=== PATIENT | female | born 1970 | race Caucasian/White ===

== ENCOUNTER → 2020-04-09 10:30 | Outpatient (BNVA) | payer OTHER, SELFPAY | PROVIDERS: Family Provider Family Medicine; PCP Family Medicine; Visit Provider Registered Nurse | DX: F41.1 Generalized anxiety disorder (principal) | CPT/HCPCS: 80053; 80061 ==

== ENCOUNTER → 2020-12-15 11:28 | Outpatient (BNVA) | payer MEDICAID, SELFPAY | PROVIDERS: Family Provider Family Medicine; PCP Family Medicine; Visit Provider Registered Nurse | DX: F33.2 Major depressive disorder, recurrent severe without psychotic features (principal); Z03.89 Encounter for observation for other suspected diseases and conditions ruled out; Z79.899 Other long term (current) drug therapy | CPT/HCPCS: 36415; 80053; 80061; 82306; 82607; 83036; 84443 ==

== ENCOUNTER → 2021-11-07 13:05 | Outpatient (BNVA) | payer MEDICAID, SELFPAY ==
[2021-03-22 17:06] VITALS: BP 109/78; BMI 33.4
== END ==
PROVIDERS: Family Provider Family Medicine; PCP Family Medicine; Visit Provider Registered Nurse
DX: F33.2 Major depressive disorder, recurrent severe without psychotic features (principal); Z79.899 Other long term (current) drug therapy
CPT/HCPCS: 80053; 80061; 82306; 83036; 85025

== ENCOUNTER 2021-12-16 11:39 | Outpatient (CLI) | payer MEDICAID, SELFPAY ==
[2021-03-22 17:06] VITALS: BP 109/78; BMI 33.4
[2021-11-14 15:08] VITALS: BP 114/74; BMI 33.3
--- NOTE | 2021-12-16 11:47 | MM_ITS ---
WS: [id number] BILATERAL 3D TOMOSYNTHESIS DIGITAL SCREENING MAMMOGRAPHY WITH CAD CLINICAL INFORMATION: SCREENING HISTORY: Screening mammogram. Clear nipple discharge COMPARISON: September 06, 2017 TECHNIQUE: Bilateral CC and MLO views. FINDINGS: The breasts are composed of heterogeneous fibroglandular density tissue, which can limit the detectio n of small underlying mass lesions. No suspicious mass, asymmetry, calcifications, or architectural d istortion. No evidence of malignancy. MM/[id number] IMPRESSION: BI-RADS: 1-Negative FOLLOW UP: 1 Year Follow-up Recommend return to annual screening mammography.
== END 2021-12-16 11:40 | disposition home or self-care (01) ==
LOC: RADSHAW 11:40
PROVIDERS: PCP Family Medicine; Visit Provider Family Medicine
DX: Z12.31 Encounter for screening mammogram for malignant neoplasm of breast (principal)
CPT/HCPCS: 77063; 77067

== ENCOUNTER → 2023-02-08 13:47 | Outpatient (BNVA) | payer MEDICAID, SELFPAY ==
[2021-11-14 15:08] VITALS: BP 114/74; BMI 33.3
== END ==
PROVIDERS: PCP Family Medicine; Visit Provider Registered Nurse
DX: Z79.899 Other long term (current) drug therapy (principal)
CPT/HCPCS: 80053; 80061; 82306; 82607; 83036; 84443; 85025

== ENCOUNTER → 2024-09-15 15:59 | Outpatient (BNVA) | payer OTHER, SELFPAY ==
[2021-11-14 15:08] VITALS: BP 114/74; BMI 33.3
== END ==
PROVIDERS: PCP Family Medicine; Visit Provider Psychiatry & Neurology Psychiatry
DX: F33.2 Major depressive disorder, recurrent severe without psychotic features (principal); Z79.899 Other long term (current) drug therapy; F43.12 Post-traumatic stress disorder, chronic; F41.1 Generalized anxiety disorder; F44.9 Dissociative and conversion disorder, unspecified; F51.05 Insomnia due to other mental disorder; F99 Mental disorder, not otherwise specified
CPT/HCPCS: 80053; 80061; 83036; 84443; 85025

== ENCOUNTER → 2024-10-23 09:20 | Outpatient (BNVA) | payer MEDICAID, SELFPAY ==
[2021-11-14 15:08] VITALS: BP 114/74; BMI 33.3
== END ==
PROVIDERS: PCP Family Medicine; Referring Provider Nurse Practitioner Family; Visit Provider Nurse Practitioner Family
DX: L85.8 Other specified epidermal thickening (principal); D22.61 Melanocytic nevi of right upper limb, including shoulder; L85.3 Xerosis cutis; L81.0 Postinflammatory hyperpigmentation; T21.24XA Burn of second degree of lower back, initial encounter; X58.XXXA Exposure to other specified factors, initial encounter
CPT/HCPCS: 99203